=== PATIENT | male | born 1965 | race Caucasian/White ===

== ENCOUNTER 2017-03-24 08:07 | Day surgery (SDC) | payer OTHER ==
[2017-03-24] MEDS ORDERED: MIDAZOLAM HCL 2MG/2ML VIAL IV ONE (15:38)
[2017-03-24] MEDS ORDERED: PROPOFOL 10 MG/ML VIAL IV ONE (15:38)
[2017-03-24] MEDS ORDERED: LABETALOL HCL 5MG/ML, 20ML VIAL SIVP ONE (15:38)
--- NOTE | 2017-03-25 16:40 | Operative Note ---
DATE OF SURGERY: 03/24/2017 OPERATION: COLONOSCOPY to the cecum with cold biopsy forceps polypectomy x2 and cold snare polypectomy x1. INDICATION: Colorectal cancer screening. ANESTHESIA: Intravenous sedation was administered by the department of anesthesiology and included Diprivan titrated to effect. PROCEDURE: Following informed consent from this alert individual, including a discussion of the risks and benefits of the procedure and an opportunity for the patient to ask questions, the patient was in the left lateral decubitus position. A digital rectal examination was performed. No abnormalities were noted. Following this, the Olympus [id number] video colonoscope was inserted into the rectum without resistance. The rectal mucosa had a normal appearance with normal folds and distensibility. The colonoscope was advanced up through the colon to the level of the cecum without much difficulty. Throughout the bowel, the mucosa appeared normal, the folds are normal and the bowel was fairly well distensible. The cecum was defined by noting the appendiceal orifice and ileocecal valve. The colon preparation was good. There were 2 diminutive 3 mm polyps noted in the sigmoid colon upon initial inspection, and these were removed with cold biopsy forceps. Upon withdrawal through the bowel, no changes were noted until the rectum was reached. In the rectum there was a 4 mm sessile polyp noted which was removed with cold snare polypectomy. Retroflexion in the rectum was endoscopically normal. The endoscope was straightened and removed. The patient tolerated the procedure well and was returned to the recovery area in stable condition. IMPRESSION: 1. Two 3 mm polyps removed from the sigmoid colon with biopsy forceps. 2. A 4 mm rectal polyp removed with cold snare polypectomy. RECOMMENDATIONS: The patient was advised he should receive a copy of his pathology report at home in the next 2-3 weeks. If not, he was asked to call my office to review the results of testing today. Further recommendations will be forthcoming pending those results. Followup will be with Dr. Ricardo Amin. As always, thank you for allowing me to participate in the care of your patient. Geo Jauregui, CC: Dr. Brennan TOBAR
== END 2017-03-24 09:50 | disposition home or self-care (01) ==
LOC: HOP 08:07
PROVIDERS: ATTEND Internal Medicine Gastroenterology
DX: Z12.11 Encounter for screening for malignant neoplasm of colon (principal); D12.5 Benign neoplasm of sigmoid colon; K62.1 Rectal polyp

== ENCOUNTER 2018-09-25 12:25 | Emergency (ER) | payer OTHER ==
[2018-09-25] MEDS ORDERED: Diph,Pert(Acell),Tet Vac 0.5 ML SYR IM ONE (13:03)
[2018-09-25] MEDS ORDERED: CEFAZOLIN 1 Gram 1 GM/50 ML BAG IVPB ONE (13:38)
--- NOTE | 2018-09-25 13:58 | Emergency Department Record ---
History of Present Illness - General Chief Complaint: Laceration(s) Stated Complaint: CUT TIP OF FINGER Time Seen by Provider: 09/25/18 12:57 Source: Patient Mode of Arrival: Ambulatory Limitations: No limitations - History of Present Illness Initial Commments: pt got l index finger tip caught under table saw. Onset/Timin -: Minutes(s) Extremity Location: Left: Hand Place: Home Context: Accidental - [place] Coma Scale Eye Response: (4) Open spontaneously Motor Response: (6) Obeys commands Verbal Response: (5) Oriented Shira Total: 15 - Related Data Patient Tetanus UTD (within 5 yrs): No Home Medications Medication Instructions Recorded Confirmed Last Taken Losartan Potassium 50 mg PO DAILY 09/25/18 09/25/18 09/25/18 Simvastatin 40 mg PO DAILY 09/25/18 09/25/18 09/25/18 Allergies Allergy/AdvReac Type Severity Reaction Status Date / Time Penicillins Allergy PT UNSURE Verified 09/25/18 12:34 OF REACTION Travel Screening - Travel/Exposure Within Last 30 Days Have you traveled within the last 30 days?: Yes Location Detail:: [place], [place] - Travel/Exposure Within Last Year Have you traveled outside the [place] in the last year?: No - Additonal Travel Details Have you been exposed to anyone with a communicable illness?: No - Travel Symptoms Symptom Screening: None Review of Systems Reviewed: No additional complaints except as noted below Constitutional: Reports: As per HPI. Denies: Chills, Fever, Malaise, Night sweats, Weakness, Weight change Eyes: Reports: As per HPI. Denies: Eye discharge, Eye pain, Photophobia, Vision change ENT: Reports: As per HPI. Denies: Congestion, Dental pain, Ear pain, Epistaxis , Hearing loss, Throat pain Respiratory: Reports: As per HPI. Denies: Cough, Dyspnea, Hemoptysis, Stridor, Wheezes Cardiovascular: Reports: As per HPI. Denies: Arrhythmia, Chest pain, Dyspnea on exertion, Edema, Murmurs, Orthopnea, Palpitations, Paroxysmal nocturnal dyspnea, Rheumatic Fever, Syncope Endocrine: Reports: As per HPI. Denies: Fatigue, Heat or cold intolerance, Polydipsia, Polyuria Gastrointestinal: Reports: As per HPI. Denies: Abdominal pain, Constipation, Diarrhea, Hematemesis, Hematochezia, Melena, Nausea, Vomiting Genitourinary: Reports: As per HPI. Denies: Dysuria, Frequency, Hematuria, Incontinence, Retention, Testicular pain, Testicular mass, Urgency Musculoskeletal: Reports: As per HPI. Denies: Arthralgia, Back pain, Gout, Joint swelling, Myalgia, Neck pain Skin: Reports: As per HPI. Denies: Bruising, Change in color, Change in hair/ nails, Lesions, Pruritus, Rash Neurological: Reports: As per HPI. Denies: Abnormal gait, Confusion, Headache, Numbness, Paresthesias, Seizure, Tingling, Tremors, Vertigo, Weakness Psychiatric: Reports: As per HPI. Denies: Anxiety, Auditory hallucinations, Depression, Homicidal thoughts, Suicidal thoughts, Visual hallucinations Hematological/Lymphatic: Reports: As per HPI. Denies: Anemia, Blood Clots, Easy bleeding, Easy bruising, Swollen glands Past Medical History - SOCIAL HISTORY Smoking Status: Current every day smoker Alcohol Use: Occasional Drug Use: None - RESPIRATORY Hx Respiratory Disorders: No - CARDIOVASCULAR Hx Cardio Disorders: Yes Hx Hypertension: Yes Comment:: high cholesterol - NEURO Hx Neuro Disorders: No - GI Hx GI Disorders: No - Hx Genitourinary Disorders: No - ENDOCRINE Hx Endocrine Disorders: No - MUSCULOSKELETAL Hx Musculoskeletal Disorders: No - PSYCH Hx Psych Problems: No - HEMATOLOGY/ONCOLOGY Hx Hematology/Oncology Disorders: No Family Medical History Any Significant Family History?: No Physical Exam - General General Appearance: Alert, Oriented x3, Cooperative, Mild distress - Head Head exam: Normal inspection - Eye Eye exam: Normal appearance, PERRL, EOMI Pupils: Normal accommodation - ENT ENT exam: Normal exam, Mucous membranes moist, Normal external ear exam, Normal orophraynx Ear exam: Normal external inspection. negative: External canal tenderness Nasal Exam: Normal inspection. negative: Discharge, Sinus tenderness Mouth exam: Normal external inspection, Tongue normal Teeth exam: Normal inspection. negative: Dental caries Throat exam: Normal inspection. negative: Tonsillar erythema, Tonsillar exudate - Neck Neck exam: Normal inspection, Full ROM. negative: Tenderness - Respiratory Respiratory exam: Normal lung sounds bilaterally. negative: Respiratory distress - Cardiovascular Cardiovascular Exam: Regular rate, Normal rhythm, Normal heart sounds - GI/Abdominal GI/Abdominal exam: Soft, Normal bowel sounds. negative: Tenderness - Rectal Rectal exam: Deferred - exam: Deferred - Extremities Extremities exam: Normal inspection, Full ROM, Normal capillary refill. negative: Tenderness Image of Finger Tip: 1 - 4cm lac - Back Back exam: Reports: Normal inspection, Full ROM. Denies: Muscle spasm, Rash noted, Tenderness - Neurological Neurological exam: Alert, CN II-XII intact, Normal gait, Oriented X3 - Psychiatric Psychiatric exam: Normal affect, Normal mood - Skin Skin exam: Dry, Intact, Normal color, Warm Course Vital Signs 09/25/18 12:25 Temperature 97.8 F Pulse Rate 78 Respiratory 18 Rate Blood Pressure 151/99 Pulse Ox 98 - Reevaluation(s) Reevaluation #1: 09/25/18 14:39 d/w dr art Disposition Disposition: Transfer Clinical Impression: Open fracture of distal phalangeal tuft Disposition: Acute [facility] Transfer Transfer To: [facility] Reason For Transfer: needs hand surgeon Accepting Physician: dr art Time Discussed w/Accepting Physician: 14:41 Forms: Patient Portal Access Quality - Quality Measures Quality Measures: N/A - Blood Pressure Screening Does Patient Have Any of the Following: No Blood Pressure Classification: Hypertensive Reading Systolic Measurement: 151 Diastolic Measurement: 99 Screening for High Blood Pressure: < First Hypertensive BP, F/U Documented > [ [id number]] First Hypertensive Follow-up Interventions: Follow-up with rescreen GT 1 day and LT 4 weeks.
--- NOTE | 2018-09-25 14:14 | RADIOLOGY REPORT ---
EXAM: LEFT INDEX FINGER HISTORY: TABLE SAW INJURY TO LEFT SECOND FINGER TIP WITH PAIN, LACERATION AND SWELLING. TECHNIQUE: Four views of the left second (index) finger were obtained. Comparison: None. Encounter: Initial. FINDINGS: There is a comminuted fracture of the tuft of the distal phalanx of the index finger with overlying soft tissue deformity. Given the mechanism of injury this is presumably an open fracture. Relatively little displacement of the major comminuted fracture fragments. There is some overlying gauze or dressing which creates some artifact. Overlying soft tissue swelling is present. No fracture of the proximal or middle phalanges identified. IMPRESSION: COMMINUTED ALTHOUGH RELATIVELY MILDLY DISPLACED FRACTURE OF THE TUFT OF THE LEFT INDEX FINGER WITH OVERLYING SOFT TISSUE SWELLING. GIVEN THE MECHANISM OF INJURY (TABLE SAW INJURY), THIS IS PRESUMABLY AN OPEN FRACTURE. JOB NUMBER: [id number] MTDD
== END 2018-09-25 15:07 | disposition short-term general hospital (02) ==
LOC: ER 12:25
DX: S62.631B Displaced fracture of distal phalanx of left index finger, initial encounter for open fracture (principal); W45.8XXA Other foreign body or object entering through skin, initial encounter; W29.8XXA Contact with other powered hand tools and household machinery, initial encounter; Y92.009 Unspecified place in unspecified non-institutional (private) residence as the place of occurrence of the external cause; I10 Essential (primary) hypertension; F17.210 Nicotine dependence, cigarettes, uncomplicated
CPT/HCPCS: 99285 ×2; 96372; 96365; 73140; J0690; 90715